=== PATIENT | male | born 1985 | race Caucasian/White ===

== ENCOUNTER → 2017-03-15 | Outpatient (CLI) | payer OTHER | LOC: BMCIMAGING 12:46 | PROVIDERS: ATTEND Nurse Practitioner Adult Health | DX: R07.89 Other chest pain (principal) | CPT/HCPCS: 71101-PO ==

== ENCOUNTER → 2017-07-21 | Outpatient (CLI) | payer OTHER | LOC: BMCIMAGING 07:26 | PROVIDERS: ATTEND Physician Assistant | DX: R10.11 Right upper quadrant pain (principal) ==

== ENCOUNTER 2019-02-16 20:36 | Emergency (ER) | payer OTHER ==
[2019-02-16 20:43] VITALS: BP 124/83
--- NOTE | 2019-02-16 20:54 | EDPHY ---
H & P Stated Complaint: soccer ball to right eye from aprox 5 feet Time Seen by Provider: 02/16/19 20:54 - Personal History Current Tetanus Diphtheria and Acellular Pertussis (TDAP): Yes Tetanus Vaccine Date: 2013 - Medical/Surgical History Hx Asthma: No Hx Chronic Respiratory Disease: No Hx Diabetes: No Hx Cardiac Disease: No Hx Renal Disease: No Hx Cirrhosis: No Hx Alcoholism: No Hx HIV/AIDS: No Hx Splenectomy or Spleen Trauma: No Other PMH: none - Social History Smoking Status: Never smoked Constitutional: Initial Vital Signs Temperature (C) 37.6 C 02/16/19 20:40 Heart Rate 93 02/16/19 20:40 Respiratory Rate 16 02/16/19 20:40 Blood Pressure 124/83 H 02/16/19 20:40 O2 Sat (%) 95 02/16/19 20:40 Allergies/Adverse Reactions: Penicillins Allergy (Verified 06/04/14 01:04) Home Medications: Medication Instructions Recorded NK [No Known Home Meds] 06/04/14 Medical Decision Making ED Course/Re-evaluation: CHIEF COMPLAINT: Right eye injury HISTORY OF PRESENT ILLNESS: The patient is a 33 y/o male complaining of right eye injury and vision loss after a soccer ball hit his closed right eye. The ball was kicked around 5 feet from where he was standing. He denies any pain in the right eye. Initially he could see out of the top half of his eye. However, now he can only see shadows and shapes out of his right eye. He felt like his eye was filling up with something. He denies any other injury. No photophobia, fever, headache, body aches, lightheadedness, chest pain, heart palpitations, shortness of breath, cough, abdominal pain, urinary or bowel complaints, numbness, paresthesias. REVIEW OF SYSTEMS: A comprehensive 10 system review of systems is otherwise negative aside from elements mentioned in the history of present illness and medical decision making. PHYSICAL EXAM: HR, BP, O2 Sat, RR. Temp noted General Appearance: Alert, well hydrated, appropriate, and non-toxic appearing. Head: Atraumatic without scalp tenderness or obvious injury Visual Acuity: Noted from Nurse's notes. Pupils: PERRLA, EOMI, no nystagmus, no trauma, no injection. Lids: No edema or swelling Skin: No proptosis, no periorbital erythema or swelling, no vesicles Conjunctivae: Not injected, not icteric, no discharge Cornea: Exam with slit lamp and fluorescein shows Anterior chamber: Right eye hyphema with traumatic mydriasis and blood in his anterior chamber. No hypopyon. Posterior Chamber: No papilledema or hemorrhages. Past medical history: Denies Past surgical history: Denies Family history: Denies Social history: Lives in [place], at bedside, employed DIAGNOSTICS/PROCEDURES/CRITICAL CARE TIME: Slit lamp exam performed. DIFFERENTIAL DIAGNOSIS: The differential diagnosis for the patient's eye injury included but was not limited to hyphema, conjunctival abrasion, retinal tear, concussion, skull fracture, intra-parenchymal contusion, subarachnoid, subdural and epidural hematoma. MEDICAL DECISION MAKING: The patient is a 33 y/o male presenting with a right eye injury and vision loss after a soccer ball hit his right eye. He denies any pain in the right eye. Initially he could see out of the top half of his eye, but eventually he felt like his eye was filling up with something. On exam he has a right eye hyphema, traumatic mydriasis, and blood in her anterior chamber. He does not have any proptosis, photophobia, conjunctival abrasion or pain. I will consult with the transcription specialist. 2109: I consulted with Dr. Coronado, transcription specialist, regarding patient. She will see him in the office tomorrow at 2:00pm. Her phone number is [phone]. Patient cannot take any NSAID's or Aspirin. He will need to sleep at a 45 degree angle and cannot bend over. 2114: Reassessed patient and discussed plan to followup with Dr. Coronado. Return precautions provided; patient is comfortable with this plan. Departure - Departure Disposition: Home, Routine, Self-Care Clinical Impression: Hyphema of right eye, Mydriasis Condition: Good Instructions: Hyphema (ED) Additional Instructions: 1. Follow-up with Dr. Coronado, an transcription specialist, at 2:00pm tomorrow. Her phone number is [phone]. Her office is in [place]. Call her phone number if you develop any severe headache or vomiting. 2. Do not take any NSAID's or Aspirin. 3. Sleep at a 45 degree angle and do not bend over. 4. Return to the Emergency Department for severe headache, vomiting, worsening vision changes, confusion, fever or other concerns. Referrals: Jalen Chatterjee MD [Primary Care Provider] - As per Instructions Xiomara Coronado MD [Medical Doctor] - As per Instructions Report Scribed for: Asif Khan Report Scribed by: Kacy Eid Date of Report: 02/16/19 Time of Report: 21:13
== END 2019-02-16 21:20 | disposition home or self-care (01) ==
DX: H21.02 Hyphema, left eye (principal); H57.04 Mydriasis; Y93.66 Activity, soccer; W21.02XA Struck by soccer ball, initial encounter; Y92.838 Other recreation area as the place of occurrence of the external cause